=== PATIENT | female | born 1960 | race Caucasian/White ===

== ENCOUNTER 2017-04-09 05:35 | Day surgery (SDC) | payer OTHER ==
[~2017-04-09] VITALS: Ht 170.2 cm; Wt 67.1 kg
[~2017-04-09 05:35] MED LIST: ADULT LOW DOSE81 M1 PO; BALANCE B-501 EAC1 PO; CHROMIUM PICO200 MC1 PO; FISH OIL 1,0001 EAC7 PO; MULTI-VITAMIN1 EAC4 PO; PROBIOTIC1 EAC2 PO; SYNTHROID112 MCG PO; VENLAFAXINE HC150 M1 PO; ZOLOFT
[2017-04-09 06:18] VITALS: BP 97/64
[2017-04-09] MEDS ORDERED: NORCO 5/3251 TABLET PO (08:36)
[2017-04-09 09:40] VITALS: BP 104/61
[2017-04-09 10:40] VITALS: BP 102/61
[2017-04-09 12:42] VITALS: BP 127/77
== END 2017-04-09 12:50 | disposition home or self-care (01) ==
LOC: SDC 05:35
PROC: 0WUF4JZ Supplement Abdominal Wall with Synthetic Substitute, Percutaneous Endoscopic Approach (ICD-10-PCS; principal; 2017-04-09)
DX: K43.9 Ventral hernia without obstruction or gangrene (principal); F41.0 Panic disorder [episodic paroxysmal anxiety]; E03.9 Hypothyroidism, unspecified; E78.5 Hyperlipidemia, unspecified; Z79.82 Long term (current) use of aspirin
CPT/HCPCS: C1781; J0690; J1100; J2250; J2405; J2710; J3010